=== PATIENT | male | born 2000 | race Caucasian/White ===

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

== ENCOUNTER 2020-06-06 02:42 | Emergency (ER) | payer SELFPAY ==
[2020-06-06 02:59] VITALS: BP 132/64; PULSE 79; TEMP 97.8; BMI 25.0
[2020-06-06 04:32] LABS: BASO % 0.7 % (0-2.0); HEMATOCRIT 41.2 % (35.4-49); HEMOGLOBIN 14.5 GM/dL (11.7-16.9); LYMPH % 28.8 % (8-40); MCH 31.1 pg (25.7-33.7); MCHC 35.2 g/dl (32.0-35.9); MEAN CELL VOLUME 88.4 fl (80-96); MEAN PLT VOLUME 8.5 fl (7.5-11.1); MONO % 9.9 % (3.8-10.2); NEUT % 58.6 % (42.8-82.8); PLATELET COUNT 253 K/MM3 (134-434); RBC 4.66 M/mm3 (4.00-5.60); WHITE BLOOD COUNT 10.2 K/mm3 (4.0-10.0)
[2020-06-06 04:53] LABS: CHLORIDE 106 mmol/L (98-107); POTASSIUM 3.7 mmol/L (3.5-5.1); SODIUM 140 mmol/L (136-145)
[2020-06-06 04:56] LABS: ANION GAP 5 MMOL/L (8-16); BLOOD UREA NITROGEN 15.9 mg/dL (7-18); CALCIUM 8.8 mg/dL (8.5-10.1); CO2 28 mmol/L (21-32); GLUCOSE,RANDOM 99 mg/dL (74-106)
[2020-06-06 04:59] LABS: CREATININE 0.8 mg/dL (0.55-1.3); SGOT/AST 33 U/L (15-37); SGPT/ALT 38 U/L (13-61)
[2020-06-06 05:01] LABS: ALK PHOS 58 U/L (45-117); BILIRUBIN,TOTAL 0.2 mg/dL (0.2-1); TOT PROT 7.5 g/dl (6.4-8.2)
== END 2020-06-06 06:19 | disposition home or self-care (01) ==
LOC: JER 02:42
DX: R07.9 Chest pain, unspecified (principal)
CPT/HCPCS: 36415; 71045-TC-FY; 80053; 82550; 82553; 84484; 85025; 93005; 93010; 99285-25

== ENCOUNTER 2022-11-20 19:17 | Emergency (ER) | payer OTHER ==
[2022-11-20 19:23] VITALS: BP 146/64; PULSE 69; RESP 18; TEMP 98.2; BMI 27.3
== END 2022-11-20 20:47 | disposition home or self-care (01) ==
LOC: JER 19:17
DX: R10.32 Left lower quadrant pain (principal)
CPT/HCPCS: 99282-25